=== PATIENT | male | born 1990 | race African-American/Black ===

== ENCOUNTER 2016-10-01 12:29 | Inpatient (IN) | payer MEDICARE, OTHER ==
--- NOTE | ~2016-10-01 | DS ---
Discharge Summary [facility] [address] [place]. [address] NAME: GO TOLENTINO : 89 STATUS : DIS IN PAT#: [id number] AGE: 26 ADM/REG DATE : 10/01/16 MR#: [id number] REPORT SERV DATE: 10/21/16 DICTATED BY: LEN POST DATE: 10/20/16 REPORT STATUS : Draft TRANSCRIBED BY: CASTILLO DATE: 10/20/16 Data Collection from hospitalization DISCHARGE DIAGNOSES: 1. Ventilator-associated pneumonia. 2. Chronic respiratory failure secondary to traumatic brain injury. 3. Klebsiella urinary tract infection - extended-spectrum beta-lactamase. 4. 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 5. Dysphagia with PEG. 6. Seizure disorder. 7. Ileus/vomiting. 8. History of mental disability (bipolar and schizophrenia). CONSULTATION: CHRISTIANO Martin PROCEDURES PERFORMED: Injection of gastrostomy tube under fluoroscopic visualization on 10/01/2016. MEDICATIONS: Lioresal 5 mg per PEG tube every eight hours, Robitussin 300 mg per PEG tube six times a day, Reglan 10 mg per PEG tube four times a day, Prilosec 40 mg per PEG tube daily, MiraLAX powder one packet daily, potassium chloride 20 mEq daily, Inderal 10 mg three times a day per PEG, transderm scopolamine patch one patch topically every 72 hours, DuoNeb inhaled solution one nebulized inhaler four times a day, Keppra 1500 mg twice a day per PEG tube, D-Mannose 450 mg per PEG tube twice a day, Ativan 0.5 mg per PEG tube every six hours as needed, and Zofran 8 mg every four hours as needed. CONDITION AT DISCHARGE: Stable. DISPOSITION: The patient was discharged to [facility] on tube feedings with activities as instructed. HOSPITAL COURSE: This is a 26-year-old man who is a resident of Health Care at [facility] with a history of chronic respiratory failure and is ventilator dependent secondary to traumatic brain injury. The patient reportedly was coughing and his PEG tube dislodged, and he was sent to the [facility] Emergency Room for PEG tube placement. The PEG tube was placed in [facility] on 10/01/2016. A KUB was performed to check placement and PEG tube placement was confirmed, however, he also had a chest x-ray and it was found that he had a right basilar infiltrate and urinary tract infection. He was admitted to the hospital at this time for further evaluation and treatment. Upon admission, ventilator management was being performed. Antibiotic therapy was started. He was felt to have ventilator-assisted pneumonia and gram-negative bacilli urinary tract infection. Vent management continued. Breathing treatments were continued. Levaquin was continued for treatment of the ventilator-associated pneumonia and gram-negative bacilli urinary tract infection. Sputum Gram stain and culture were going to be obtained. Jevity tube feedings were continued. Keppra was continued. He was monitored for signs of seizure activity. Heparin DVT prophylaxis was started. On 10/03/2016, blood cultures were negative. Head of his bed was kept elevated at 30 degrees. He was at risk for aspiration. Discharge Summary [address] [address] NAME: GO TOLENTINO : [birth year] STATUS : DIS IN PAT#: [id number] AGE: 26 ADM/REG DATE : 10/01/16 MR#: [id number] REPORT SERV DATE: 10/21/16 DICTATED BY: LEN POST DATE: 10/20/16 REPORT STATUS : Draft TRANSCRIBED BY: CASTILLO DATE: 10/20/16 Levaquin was continued. He was evaluated by Physical Therapy. On 10/05/2016, he had shallow inspiration. He remained on IV Levaquin. Supportive care continued. He was changed IV Keppra. He did have an episode of vomiting that morning. He did have a bowel movement. He was seen in consultation by Daniele Ritchie regarding ileus and PEG tube site erosion. This was going to be treated with some zinc oxide. KUB had shown diffuse gas-filled colon, most suggestive of ileus and less likely rectal obstruction. Carafate was held. Proton pump inhibitor was started. Reglan was continued. Dulcolax suppository was going to be given. Discharge planning continued. On 10/07/2016, KUB had shown gas pattern with significant improvement from previous with interval resolution of ileus. Tube feedings had been resumed. Lactulose was on hold. Discharge instructions were given. Due to his improved and stable condition, he was discharged to [facility] with the above-stated instructions. Information collected by: Leena Mccall I submit the above information as my discharge summary. TG/MODL Len Post M.D. / [id number] CC: Len Post M.D. Sherrill [facility]urHema [facility]
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
[~2016-10-01 12:29] MED LIST: ATV.5 PO; CARASPUDL PO; CENTRUM PO; DUONEB INH; ENULOSE PO; I10 PO; KEPPRA1000 MG PO; LIOR10 PO; PRILOSEC40 MG PO; Q-TUSSIN PO; REG PO; VITC500 PO; ZOFRAN4 PO
[2016-10-01 13:22] LABS: ASCORBIC ACID (UR NOT ORDER) 40 (NEG); BILIRUBIN, URINE NEGATIVE (NEG); ER URINALYSIS TAT 0 Hrs 56 Mins; KETONE, URINE TRACE MG/DL (NEG); LEUKOCYTE ESTERASE(NOT OR LARGE (NEG); NITRITE (URINE) POS (NEG); WBC (NOT ORDERED) (RFLEX) > 182 (0-5)
[2016-10-01] MEDS ORDERED: LIOR10 PEG (15:35)
[2016-10-01] MEDS ORDERED: DUONEB INH (15:36)
[2016-10-01] MEDS ORDERED: KEPPRAUDL PEG (15:36)
[2016-10-01] MEDS ORDERED: GGEXPUD PEG (15:38)
[2016-10-01] MEDS ORDERED: PRILOSEC40 MG PEG (15:39)
[2016-10-01] MEDS ORDERED: I10 PEG (15:39)
[2016-10-01] MEDS ORDERED: CONSTULOSE PEG (15:40)
[2016-10-01] MEDS ORDERED: CARASPUDL PEG (15:40)
[2016-10-01] MEDS ORDERED: D-MANNOSE PEG (15:41)
[2016-10-01] MEDS ORDERED: ATV.5 PEG (15:41)
[2016-10-01] MEDS ORDERED: ZOFRAN8 PEG (15:42)
[2016-10-01] MEDS ORDERED: REG PEG (15:50)
[2016-10-01 17:26] LABS: BASOPHILS 0.4 %; BASOPHILS ABSOLUTE 0.02 10/3/uL (0.0-0.16); EOSINOPHILS 2.6 %; EOSINOPHILS ABSOLUTE 0.15 10/3/uL (0.0-0.53); ER CBC TAT 0 Hrs 05 Mins; HEMATOCRIT 37.8 % (40.0-51.0); HEMOGLOBIN 12.3 g/dL (13.6-17.8); IMMATURE GRANULOCYTES 0.4 %; IMMATURE GRANULOCYTES ABSOLUTE 0.02 10/3/uL (0.0-0.11); LYMPHOCYTES 22.2 %; LYMPHOCYTES ABSOLUTE 1.27 10/3/uL (0.67-4.30); MANUAL DIFF NO %; MEAN CORPUS HGB CONC 32.5 g/dL (32.0-36.0); MEAN CORPUSCULAR HEMOGLOB 26.9 pg (26.0-34.0); MEAN CORPUSCULAR VOLUME 82.5 fL (80-100); MEAN PLATELET VOLUME 11.2 fL (9.2-13.0); MONOCYTES 12.3 %; NEUTROPHILS 62.1 %; NEUTROPHILS ABSOLUTE 3.55 10/3/uL (2.02-8.40); PLATELET COUNT 230 10/3/uL (150-400); RBC DISTRIBUTION WIDTH 13.8 % (12.0-16.0); RED CELL COUNT 4.58 10/6/uL (4.7-6.1); WHITE BLOOD CELLS 5.7 10/3/uL (4.5-10.5)
[2016-10-01 17:33] LABS: INTERNATIONAL NORMAL RATI 1.1 UNITS (-); PARTIAL THROMBO TIME 33.1 SEC (22.5-37.2); PROTIME (NOT ORD) 14.4 SEC (12.0-14.5)
[2016-10-01 17:41] LABS: A/G RATIO 0.8 (0.7-1.9); ALBUMIN 3.4 G/DL (3.5-5.0); ALKALINE PHOSPHATASE 105 U/L (45-117); BUN (BLOOD UREA NITROGEN) 7 MG/DL (6-23); CHLORIDE, SERUM 105 MMOL/L (96-112); CO2 (CARBON DIOXIDE) 29 MMOL/L (24-34); CREATININE 0.71 MG/DL (0.70-1.30); GFR AFRICAN AMERICAN 151 ML/MIN (>=60); GFR NON AFRICAN AMERICAN 130 ML/MIN (>=60); GLOBULIN 4.4 G/DL (2.5-4.1); GLUCOSE, SERUM 87 MG/DL (60-99); SGOT(AST) 11 U/L (5-40); SGPT(ALT) 28 U/L (5-65); SODIUM, SERUM 142 MMOL/L (135-148); TOTAL BILIRUBIN 0.7 MG/DL (0-1.2); TOTAL PROTEIN 7.8 G/DL (6.0-8.5)
[2016-10-01 17:48] LABS: LACTATE 1.5 MMOL/L (0.3-2.4)
[2016-10-01 18:26] LABS: PROCALCITONIN <0.05 ng/mL (<0.5)
[2016-10-02 04:37] LABS: BASOPHILS 0.4 %; BASOPHILS ABSOLUTE 0.02 10/3/uL (0.0-0.16); EOSINOPHILS 1.6 %; EOSINOPHILS ABSOLUTE 0.09 10/3/uL (0.0-0.53); HEMOGLOBIN 12.1 g/dL (13.6-17.8); IMMATURE GRANULOCYTES 0.2 %; IMMATURE GRANULOCYTES ABSOLUTE 0.01 10/3/uL (0.0-0.11); LYMPHOCYTES 25.3 %; LYMPHOCYTES ABSOLUTE 1.43 10/3/uL (0.67-4.30); MEAN CORPUS HGB CONC 31.8 g/dL (32.0-36.0); MEAN CORPUSCULAR HEMOGLOB 26.3 pg (26.0-34.0); MEAN CORPUSCULAR VOLUME 82.6 fL (80-100); MEAN PLATELET VOLUME 11.6 fL (9.2-13.0); MONOCYTES 11.3 %; MONOCYTES ABSOLUTE 0.64 10/3/uL (0.21-1.20); NEUTROPHILS 61.2 %; NEUTROPHILS ABSOLUTE 3.46 10/3/uL (2.02-8.40); PLATELET COUNT 243 10/3/uL (150-400); RBC DISTRIBUTION WIDTH 13.9 % (12.0-16.0); WHITE BLOOD CELLS 5.7 10/3/uL (4.5-10.5)
[2016-10-02 04:38] LABS: MANUAL DIFF NO %
[2016-10-02 06:27] LABS: A/G RATIO 0.8 (0.7-1.9); ALBUMIN 3.3 G/DL (3.5-5.0); ALKALINE PHOSPHATASE 101 U/L (45-117); BUN (BLOOD UREA NITROGEN) 9 MG/DL (6-23); CALCIUM, SERUM 8.8 MG/DL (8.5-10.4); CHLORIDE, SERUM 107 MMOL/L (96-112); CREATININE 0.71 MG/DL (0.70-1.30); GFR AFRICAN AMERICAN 151 ML/MIN (>=60); GFR NON AFRICAN AMERICAN 130 ML/MIN (>=60); GLOBULIN 4.4 G/DL (2.5-4.1); GLUCOSE, SERUM 79 MG/DL (60-99); POTASSIUM, SERUM 3.9 MMOL/L (3.5-5.3); SGOT(AST) 14 U/L (5-40); SGPT(ALT) 26 U/L (5-65); SODIUM, SERUM 143 MMOL/L (135-148); TOTAL BILIRUBIN 0.7 MG/DL (0-1.2); TOTAL PROTEIN 7.7 G/DL (6.0-8.5)
[2016-10-02 06:28] LABS: CO2 (CARBON DIOXIDE) 21 MMOL/L (24-34)
[2016-10-03 06:42] LABS: BASOPHILS 0.5 %; BASOPHILS ABSOLUTE 0.02 10/3/uL (0.0-0.16); EOSINOPHILS 4.1 %; EOSINOPHILS ABSOLUTE 0.15 10/3/uL (0.0-0.53); HEMOGLOBIN 11.6 g/dL (13.6-17.8); IMMATURE GRANULOCYTES 0.3 %; IMMATURE GRANULOCYTES ABSOLUTE 0.01 10/3/uL (0.0-0.11); LYMPHOCYTES 36.2 %; LYMPHOCYTES ABSOLUTE 1.34 10/3/uL (0.67-4.30); MANUAL DIFF NO %; MEAN CORPUS HGB CONC 32.2 g/dL (32.0-36.0); MEAN CORPUSCULAR HEMOGLOB 26.6 pg (26.0-34.0); MEAN CORPUSCULAR VOLUME 82.6 fL (80-100); MEAN PLATELET VOLUME 11.2 fL (9.2-13.0); MONOCYTES 12.2 %; MONOCYTES ABSOLUTE 0.45 10/3/uL (0.21-1.20); NEUTROPHILS 46.7 %; NEUTROPHILS ABSOLUTE 1.73 10/3/uL (2.02-8.40); PLATELET COUNT 210 10/3/uL (150-400); RBC DISTRIBUTION WIDTH 13.9 % (12.0-16.0); RED CELL COUNT 4.36 10/6/uL (4.7-6.1); WHITE BLOOD CELLS 3.7 10/3/uL (4.5-10.5)
[2016-10-03 06:47] LABS: BUN (BLOOD UREA NITROGEN) 7 MG/DL (6-23); CALCIUM, SERUM 8.7 MG/DL (8.5-10.4); CHLORIDE, SERUM 108 MMOL/L (96-112); CO2 (CARBON DIOXIDE) 25 MMOL/L (24-34); CREATININE 0.63 MG/DL (0.70-1.30); GFR AFRICAN AMERICAN 159 ML/MIN (>=60); GFR NON AFRICAN AMERICAN 137 ML/MIN (>=60); GLUCOSE, SERUM 90 MG/DL (60-99); SODIUM, SERUM 144 MMOL/L (135-148)
[2016-10-04 04:52] LABS: BUN (BLOOD UREA NITROGEN) 6 MG/DL (6-23); CALCIUM, SERUM 8.5 MG/DL (8.5-10.4); CHLORIDE, SERUM 108 MMOL/L (96-112); CO2 (CARBON DIOXIDE) 26 MMOL/L (24-34); CREATININE 0.68 MG/DL (0.70-1.30); GFR AFRICAN AMERICAN 154 ML/MIN (>=60); GFR NON AFRICAN AMERICAN 133 ML/MIN (>=60); GLUCOSE, SERUM 93 MG/DL (60-99); POTASSIUM, SERUM 3.9 MMOL/L (3.5-5.3); SODIUM, SERUM 143 MMOL/L (135-148)
[2016-10-04 04:54] LABS: BASOPHILS 1.1 %; BASOPHILS ABSOLUTE 0.04 10/3/uL (0.0-0.16); EOSINOPHILS ABSOLUTE 0.19 10/3/uL (0.0-0.53); HEMATOCRIT 36.2 % (40.0-51.0); HEMOGLOBIN 11.9 g/dL (13.6-17.8); LYMPHOCYTES 35.7 %; LYMPHOCYTES ABSOLUTE 1.35 10/3/uL (0.67-4.30); MANUAL DIFF NO %; MEAN CORPUS HGB CONC 32.9 g/dL (32.0-36.0); MEAN CORPUSCULAR HEMOGLOB 27.1 pg (26.0-34.0); MEAN CORPUSCULAR VOLUME 82.5 fL (80-100); MONOCYTES 10.1 %; MONOCYTES ABSOLUTE 0.38 10/3/uL (0.21-1.20); NEUTROPHILS 48.1 %; NEUTROPHILS ABSOLUTE 1.82 10/3/uL (2.02-8.40); PLATELET COUNT 208 10/3/uL (150-400); RED CELL COUNT 4.39 10/6/uL (4.7-6.1); WHITE BLOOD CELLS 3.8 10/3/uL (4.5-10.5)
[2016-10-05 04:45] LABS: BASOPHILS 0.6 %; BASOPHILS ABSOLUTE 0.02 10/3/uL (0.0-0.16); EOSINOPHILS 4.5 %; EOSINOPHILS ABSOLUTE 0.16 10/3/uL (0.0-0.53); HEMATOCRIT 38.5 % (40.0-51.0); HEMOGLOBIN 12.4 g/dL (13.6-17.8); IMMATURE GRANULOCYTES 0.3 %; IMMATURE GRANULOCYTES ABSOLUTE 0.01 10/3/uL (0.0-0.11); LYMPHOCYTES 33.9 %; MEAN CORPUS HGB CONC 32.2 g/dL (32.0-36.0); MEAN CORPUSCULAR HEMOGLOB 26.7 pg (26.0-34.0); MEAN PLATELET VOLUME 11.1 fL (9.2-13.0); MONOCYTES ABSOLUTE 0.46 10/3/uL (0.21-1.20); NEUTROPHILS 47.7 %; NEUTROPHILS ABSOLUTE 1.69 10/3/uL (2.02-8.40); PLATELET COUNT 224 10/3/uL (150-400); RBC DISTRIBUTION WIDTH 13.9 % (12.0-16.0); RED CELL COUNT 4.64 10/6/uL (4.7-6.1); WHITE BLOOD CELLS 3.5 10/3/uL (4.5-10.5)
[2016-10-05 04:46] LABS: MANUAL DIFF NO %
[2016-10-05 04:58] LABS: BUN (BLOOD UREA NITROGEN) 4 MG/DL (6-23); CALCIUM, SERUM 8.7 MG/DL (8.5-10.4); CHLORIDE, SERUM 108 MMOL/L (96-112); CO2 (CARBON DIOXIDE) 26 MMOL/L (24-34); CREATININE 0.69 MG/DL (0.70-1.30); GFR AFRICAN AMERICAN 153 ML/MIN (>=60); GFR NON AFRICAN AMERICAN 132 ML/MIN (>=60); GLUCOSE, SERUM 92 MG/DL (60-99); POTASSIUM, SERUM 3.8 MMOL/L (3.5-5.3); SODIUM, SERUM 142 MMOL/L (135-148)
[2016-10-06 05:10] LABS: BASOPHILS 0.2 %; BASOPHILS ABSOLUTE 0.01 10/3/uL (0.0-0.16); EOSINOPHILS 2.2 %; HEMATOCRIT 37.9 % (40.0-51.0); HEMOGLOBIN 12.1 g/dL (13.6-17.8); IMMATURE GRANULOCYTES 0.2 %; IMMATURE GRANULOCYTES ABSOLUTE 0.01 10/3/uL (0.0-0.11); LYMPHOCYTES 29.5 %; LYMPHOCYTES ABSOLUTE 1.32 10/3/uL (0.67-4.30); MANUAL DIFF NO %; MEAN CORPUS HGB CONC 31.9 g/dL (32.0-36.0); MEAN CORPUSCULAR HEMOGLOB 26.4 pg (26.0-34.0); MEAN CORPUSCULAR VOLUME 82.8 fL (80-100); MEAN PLATELET VOLUME 11.3 fL (9.2-13.0); MONOCYTES 12.5 %; MONOCYTES ABSOLUTE 0.56 10/3/uL (0.21-1.20); NEUTROPHILS 55.4 %; NEUTROPHILS ABSOLUTE 2.48 10/3/uL (2.02-8.40); PLATELET COUNT 226 10/3/uL (150-400); RBC DISTRIBUTION WIDTH 13.9 % (12.0-16.0); RED CELL COUNT 4.58 10/6/uL (4.7-6.1); WHITE BLOOD CELLS 4.5 10/3/uL (4.5-10.5)
[2016-10-06 05:20] LABS: BUN (BLOOD UREA NITROGEN) 6 MG/DL (6-23); CALCIUM, SERUM 8.7 MG/DL (8.5-10.4); CHLORIDE, SERUM 111 MMOL/L (96-112); CO2 (CARBON DIOXIDE) 23 MMOL/L (24-34); GFR AFRICAN AMERICAN 152 ML/MIN (>=60); GFR NON AFRICAN AMERICAN 131 ML/MIN (>=60); GLUCOSE, SERUM 87 MG/DL (60-99); POTASSIUM, SERUM 3.8 MMOL/L (3.5-5.3); SODIUM, SERUM 144 MMOL/L (135-148)
[2016-10-07 05:43] LABS: BUN (BLOOD UREA NITROGEN) 3 MG/DL (6-23); CALCIUM, SERUM 8.5 MG/DL (8.5-10.4); CHLORIDE, SERUM 110 MMOL/L (96-112); CO2 (CARBON DIOXIDE) 24 MMOL/L (24-34); GFR AFRICAN AMERICAN 162 ML/MIN (>=60); GFR NON AFRICAN AMERICAN 140 ML/MIN (>=60); GLUCOSE, SERUM 97 MG/DL (60-99); POTASSIUM, SERUM 3.6 MMOL/L (3.5-5.3); SODIUM, SERUM 145 MMOL/L (135-148)
[2016-10-07 12:22] LABS: A/G RATIO 0.8 (0.7-1.9); ALBUMIN 3.1 G/DL (3.5-5.0); ALKALINE PHOSPHATASE 86 U/L (45-117); PREALBUMIN 15.8 MG/DL (17.0-43.0); SGOT(AST) 21 U/L (5-40); SGPT(ALT) 21 U/L (5-65); TOTAL BILIRUBIN 0.4 MG/DL (0-1.2); TOTAL PROTEIN 7.1 G/DL (6.0-8.5)
[2016-10-12] MEDS ORDERED: ZOFRAN4 PO (13:49)
[2016-10-12] MEDS ORDERED: KCL20UDL (13:50)
[2016-11-26] MEDS ORDERED: LIOR10 PEG (13:44)
[2016-11-26] MEDS ORDERED: REG PEG (13:44)
[2016-11-26] MEDS ORDERED: GGEXPUD PEG (13:44)
[2016-11-26] MEDS ORDERED: PRILOSEC40 MG PEG (13:45)
[2016-11-26] MEDS ORDERED: KEPPRAUDL PEG (13:45)
[2016-11-26] MEDS ORDERED: I10 PEG (13:45)
[2016-11-26] MEDS ORDERED: KLOR-CON20 MEQ PEG (13:45)
[2016-11-26] MEDS ORDERED: ENULOSE PEG (13:47)
[2016-11-26] MEDS ORDERED: DUONEB INH (13:47)
[2016-11-26] MEDS ORDERED: D MANNOSE PEG (13:48)
[2016-11-26] MEDS ORDERED: ZOFRAN8 PEG (13:49)
[2016-11-26] MEDS ORDERED: ATV.5 PEG (13:49)
[2016-11-26] MEDS ORDERED: AUG875 PEG (13:49)
== END 2016-10-07 15:58 | DRG 207 ==
LOC: ER 12:29 → IMCU 18:44
PROVIDERS: Emergency Medicine; Family Medicine; Nurse Practitioner Family
PROC: 5A1955Z Respiratory Ventilation, Greater than 96 Consecutive Hours (ICD-10-PCS; principal; 2016-10-01)
DX: J95.851 Ventilator associated pneumonia (principal); G93.40 Encephalopathy, unspecified; Z99.81 Dependence on supplemental oxygen; J96.11 Chronic respiratory failure with hypoxia; K56.7 Ileus, unspecified; N39.0 Urinary tract infection, site not specified; Z93.1 Gastrostomy status; B96.1 Klebsiella pneumoniae [K. pneumoniae] as the cause of diseases classified elsewhere; G40.909 Epilepsy, unspecified, not intractable, without status epilepticus; Z87.820 Personal history of traumatic brain injury; Z51.5 Encounter for palliative care
CPT/HCPCS: 31720; 36600; 49465; 71010; 74000; 80048; 80053; 81001; 83605; 83735; 84100; 84134; 84145; 85025; 85610; 85730; 87040; 87077; 87086; 87186; 87641; 94002; 94003; 94640; 96374; 97162-GP; 99285; A9270-GY; C9113; G8978-CN-GP; G8979-CN-GP; G8980-CN-GP; J1953; J1956; J2765